=== PATIENT | female | born 1960 | race Caucasian/White ===

== ENCOUNTER 2017-01-14 14:09 | Emergency (ER) | payer MEDICAID ==
[2017-01-14 14:19] VITALS: RESP 16; TEMP 97.8; O2SAT 98
[2017-01-14] MEDS ORDERED: Sodium Chloride 0.9% 1,000 ML IV ONE (14:27)
--- NOTE | 2017-01-14 14:36 | C.PDOC ---
History Of Present Illness 56 y/o female brought in by EMS c/o migraine headache that began yesterday. Patient does not speak [place]ian is from [place] and her son is helping to translate. Son reports she fall today and a couple of months ago and as per son "broken her left shoulder bone. Patient denies weakness, or numbness. No visual changes, photophobia, nausea, or vomiting. Time Seen by Provider: 01/14/17 14:14 Chief Complaint (Nursing): Headache History Per: Patient, Family (SON) History/Exam Limitations: language barrier Onset/Duration Of Symptoms: Days (Yesterday) Current Symptoms Are (Timing): Still Present Severity: Mild Quality: Aching Associated Symptoms: denies: Photophobia, Blurred Vision, Nausea, Vomiting, Extremity Weakness Additional History Per: Patient, Family Past Medical History Reviewed: Historical Data, Nursing Documentation, Vital Signs Vital Signs: Last Vital Signs Temp 97.8 F 01/14/17 14:16 Pulse 84 01/14/17 16:30 Resp 16 01/14/17 16:30 BP 115/78 01/14/17 16:30 Pulse Ox 98 01/14/17 16:30 - Medical History PMH: HTN Family History: States: Unknown Family Hx - Social History Hx Alcohol Use: No Hx Substance Use: No - Immunization History Hx Tetanus Toxoid Vaccination: No Hx Influenza Vaccination: No Hx Pneumococcal Vaccination: No Review Of Systems Except As Marked, All Systems Reviewed And Found Negative. Eyes: Negative for: Vision Change, Other (Photophobia) Gastrointestinal: Negative for: Nausea, Vomiting Neurological: Positive for: Headache. Negative for: Weakness, Numbness Physical Exam - Physical Exam Appears: Non-toxic, No Acute Distress Skin: Warm, Dry Head: Atraumatic, Normacephalic Eye(s): bilateral: Normal Inspection, PERRL, EOMI Cardiovascular: Rhythm Regular, No Murmur Respiratory: Normal Breath Sounds, No Rales, No Rhonchi, No Wheezing Gastrointestinal/Abdominal: Soft, No Tenderness Neurological/Psych: Oriented x3, Normal Motor, Normal Sensation Gait: Steady ED Course And Treatment - Laboratory Results Result Diagrams: 01/14/17 15:00 01/14/17 15:00 Lab Interpretation: Normal ECG: Interpreted By Me ECG Rhythm: Sinus Rhythm ECG Interpretation: No Acute Changes Rate From EC O2 Sat by Pulse Oximetry: 98 (RA) Pulse Ox Interpretation: Normal - CT Scan/US No standard instances Other Rad Studies (CT/US): Read By Radiologist, Radiology Report Reviewed CT/US Interpretation: FINDINGS: HEMORRHAGE: No intracranial hemorrhage. BRAIN : Normal wisdom-white matter differentiation and density are appreciated throughout the cerebrum and cerebellum with the brainstem appearing unremarkable as well. There is no mass effect. There is no suspicious extra- axial fluid collection in the midline brain anatomy appears diffusely unremarkable. VENTRICLES: Unremarkable. No hydrocephalus. CALVARIUM: Unremarkable. PARANASAL SINUSES: Right maxillary multifocal ethmoid sinus disease identified. MASTOID AIR CELLS: Unremarkable as visualized. No inflammatory changes. OTHER FINDINGS: None. IMPRESSION: Unremarkable unenhanced head CT. Incidental multifocal sinusitis incidentally noted as discussed above. Progress Note: Treated with reglan and IVF NSS. On re-evaluation feeling better , neuro intact ambulating with steady gait Reassessment Condition: Improved Medical Decision Making Medical Decision Making: Plans: * CT Head w/o * Blood labs * Reglan * IV fluids * UA Disposition Counseled Patient/Family Regarding: Studies Performed, Diagnosis, Need For Followup, Rx Given - Disposition Referrals: [facility] [Outside] [facility] [Outside] Disposition: HOME/ ROUTINE Disposition Time: 16:30 Condition: STABLE Prescriptions: Acetaminophen/Butalbital/Caf [Fioricet] 1 tab PO TID PRN #12 tab PRN Reason: Headache Instructions: Migraine Headache (ED) Forms: [facility] (Jordanian) - POA Present On Arrival: None - Clinical Impression Clinical Impression: Headache, Migraine - Scribe Statement The provider has reviewed the documentation as recorded by the Lianeibmary bonner All medical record entries made by the Lianeibmary were at my direction and personally dictated by me. I have reviewed the chart and agree that the record accurately reflects my personal performance of the history, physical exam, medical decision making, and the department course for this patient. I have also personally directed, reviewed, and agree with the discharge instructions and disposition.
[2017-01-14] MEDS ORDERED: Sodium Chloride 0.9% 1,000 ML ONE (14:48)
[2017-01-14 15:05] LABS: BASO % 0.4 % (0.0-2.0); EOS # 0.2 K/uL (0.0-0.7); HEMATOCRIT 42.6 % (34.0-47.0); LYMPH # 1.1 K/uL (1.0-4.3); LYMPH % 18.3 % (20.0-40.0); MEAN CELL VOLUME 74.8 fL (81.0-99.0); MEAN CORPUSCULAR HEMOGLOBIN 24.2 pg (27.0-31.0); MEAN CORPUSCULAR HGB CONC 32.4 g/dL (33.0-37.0); MEAN PLATELET VOLUME 8.1 fL (7.2-11.7); MONO # 0.3 K/uL (0.0-0.8); MONO % 5.2 % (0.0-10.0); RED CELL DISTRIBUTION WIDTH 14.7 % (11.5-14.5); WHITE BLOOD COUNT 6.1 K/uL (4.8-10.8)
[2017-01-14 15:12] LABS: CHLORIDE 99 mmol/L (98-107); POTASSIUM 4.1 mmol/L (3.6-5.2); SODIUM 136 mmol/L (132-148)
[2017-01-14 15:14] LABS: ALB/GLOB RATIO 1.2 (1.0-2.1); AST/SGOT 22 U/L (14-36); BILIRUBIN,TOTAL 0.5 mg/dL (0.2-1.3); CARBON DIOXIDE 22 mmol/L (22-30); GFR AFRICAN-AMERICAN > 60
[2017-01-14 15:15] LABS: ALKALINE PHOSPHATASE 76 U/L (38-126); ALT/SGPT 32 U/L (9-52); BLOOD UREA NITROGEN 8 mg/dL (7-17); CALCIUM 9.1 mg/dl (8.6-10.4); GLUCOSE,RANDOM 103 mg/dL (65-105)
--- NOTE | 2017-01-14 15:52 | CT ---
PROCEDURE: CT HEAD WITHOUT CONTRAST. HISTORY: R/O Bleed COMPARISON: None available. TECHNIQUE: Axial computed tomography images were obtained through the head/brain without intravenous contrast. Radiation dose: Total exam DLP = 982.82 mGy-cm. This CT exam was performed using one or more of the following dose reduction techniques: Automated exposure control, adjustment of the mA and/or kV according to patient size, and/or use of iterative reconstruction technique. FINDINGS: HEMORRHAGE: No intracranial hemorrhage. BRAIN: Normal wisdom-white matter differentiation and density are appreciated throughout the cerebrum and cerebellum with the brainstem appearing unremarkable as well. There is no mass effect. There is no suspicious extra-axial fluid collection in the midline brain anatomy appears diffusely unremarkable. VENTRICLES: Unremarkable. No hydrocephalus. CALVARIUM: Unremarkable. PARANASAL SINUSES: Right maxillary multifocal ethmoid sinus disease identified. MASTOID AIR CELLS: Unremarkable as visualized. No inflammatory changes. OTHER FINDINGS: None. IMPRESSION: Unremarkable unenhanced head CT. Incidental multifocal sinusitis incidentally noted as discussed above.
[2017-01-14 16:31] VITALS: BP 115/78; PULSE 84
--- NOTE | 2017-01-16 11:24 | CARD ---
APPROVED REPORT EKG Measurement Heart [id number] <Conclusion> Sinus rhythm with premature atrial complexes Low voltage QRS Inferior infarct, age undetermined Possible Anterolateral infarct, age undetermined Abnormal ECG
== END 2017-01-14 16:30 | disposition home or self-care (01) ==
LOC: C.ER 14:09
DX: G43.909 Migraine, unspecified, not intractable, without status migrainosus (principal)

== ENCOUNTER 2017-01-19 07:07 | Inpatient (IN) | payer MEDICAID, OTHER ==
--- NOTE | 2017-01-19 07:34 | C.PDOC ---
History Of Present Illness Patient is a 56 y/o F presenting after episode of altered mental status. Family reports that they found patient altered in bed at 5am (2.5 hours ago). They report that patient was shaking and was incontinent of urine. They report that when she "woke up" she was confused and was found same way by EMS. Patient is now AAox3. Patient reports that she was previously told she might have a seizure disorder in [place] but was discontinued by HUGO GARCIA who thought that she did not have seizures. Patient is now complaining of dizziness and headache. Denies fever, chest pain, shortness of breath. 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 Time Seen by Provider: 01/19/17 07:08 Chief Complaint (Nursing): Seizure History Per: Patient History/Exam Limitations: no limitations Recent Seizure Activity Began: Unknown Quality Of Seizure: Generalized Associated Symptoms: Incontinence Of Urine Severity: Mild Additional History Per: Patient Past Medical History Reviewed: Historical Data, Nursing Documentation, Vital Signs Vital Signs: Last Vital Signs Temp 97.5 F L 01/19/17 12:47 Pulse 67 01/19/17 12:47 Resp 20 01/19/17 12:47 BP 117/78 01/19/17 12:47 Pulse Ox 96 01/19/17 14:20 - Medical History PMH: HTN, Migraine Family History: States: Unknown Family Hx - Social History Hx Alcohol Use: No Hx Substance Use: No - Immunization History Hx Tetanus Toxoid Vaccination: No Hx Influenza Vaccination: No Hx Pneumococcal Vaccination: No Review Of Systems Constitutional: Negative for: Fever, Chills ENT: Negative for: Ear Pain Cardiovascular: Positive for: Light Headedness. Negative for: Chest Pain, Palpitations, Orthopnea, Edema Respiratory: Negative for: Cough, Shortness of Breath Gastrointestinal: Negative for: Abdominal Pain Genitourinary: Positive for: Incontinence (urine) Skin: Negative for: Rash Neurological: Positive for: Seizures, Headache, Dizziness Psych: Negative for: Anxiety Physical Exam - Physical Exam Appears: Well, Non-toxic, No Acute Distress, Other (Obese female) Skin: Warm, Dry Head: Atraumatic, Normacephalic Eye(s): bilateral: Normal Inspection Oral Mucosa: Moist Neck: Supple Chest: Symmetrical Cardiovascular: Rhythm Regular, No Murmur Respiratory: Normal Breath Sounds, No Rales, No Rhonchi, No Wheezing Gastrointestinal/Abdominal: Soft, No Tenderness Back: Normal Inspection, No CVA Tenderness Extremity: Normal ROM (x4), No Pedal Edema (No lower extremity edema), Capillary Refill (<2secs) Neurological/Psych: Oriented x3, Normal Speech, Normal Cognition, Normal Cranial Nerves Gait: Unable To Assess (reports too dizzy to ambulate) ED Course And Treatment - Laboratory Results Result Diagrams: 01/19/17 07:47 01/19/17 07:47 O2 Sat by Pulse Oximetry: 96 (RA) Pulse Ox Interpretation: Normal - CT Scan/US CT Head w/o Other Rad Studies (CT/US): Interpreted By Me, Read By Radiologist CT/US Interpretation: PROCEDURE: CT HEAD WITHOUT CONTRAST. HISTORY: seizure. COMPARISON: None available. TECHNIQUE: Axial computed tomography images were obtained through the head/brain without intravenous contrast. Radiation dose: Total exam DLP = 998 mGy-cm. This CT exam was performed using one or more of the following dose reduction techniques: Automated exposure control, adjustment of the mA and/or kV according to patient size, and/or use of iterative reconstruction technique. FINDINGS: HEMORRHAGE: No intracranial hemorrhage. BRAIN: No mass effect or edema. No atrophy or chronic microvascular ischemic changes. VENTRICLES: Unremarkable. No hydrocephalus. CALVARIUM: Unremarkable. PARANASAL SINUSES: Dense mucosal opacification of the right maxillary sinus as well as the posterior left ethmoid air cells. Milder mucosal opacification the anterior to mid ethmoid air cells and sphenoid sinus. Dense opacification the right frontal sinus. MASTOID AIR CELLS: Unremarkable as visualized. No inflammatory changes. OTHER FINDINGS: Motion artifact somewhat limits evaluation. IMPRESSION: No acute intracranial abnormality. Extensive sinus mucosal disease as described above. If focal neurologic deficit persists, consider MRI. Medical Decision Making Medical Decision Making: Presentation concerning for seizure. Plans: * CT Head w/o * EKG * Blood labs * CXR * Tylenol * Antivert * UA * IV fluids 10:21AM EKG shows NSR at 65bpm with non-specific st changes. Trop x 1 negative. Labs grossly normal. UA shows leukocytes but patient denies dysuria. Ucx sent. Cxray shows mild pulmonary venous congestion. CT head negative but shows "Extensive sinus mucosal disease." Patient reports persistent dizziness. Spoke to Julia. Will admit to tele with neurology consult for new onset seizures requiring further eval. Disposition - Disposition Disposition: HOSPITALIZED Disposition Time: 10:24 Condition: FAIR - Clinical Impression Clinical Impression: Seizure, Dizziness - Scribe Statement The provider has reviewed the documentation as recorded by the Scribe Meño bonner All medical record entries made by the Lianeibe were at my direction and personally dictated by me. I have reviewed the chart and agree that the record accurately reflects my personal performance of the history, physical exam, medical decision making, and the department course for this patient. I have also personally directed, reviewed, and agree with the discharge instructions and disposition.
[2017-01-19 07:55] LABS: BASO # 0.1 K/uL (0.0-0.2); BASO % 0.7 % (0.0-2.0); EOS # 0.4 K/uL (0.0-0.7); EOS % 4.5 % (0.0-4.0); HEMATOCRIT 41.4 % (34.0-47.0); LYMPH # 1.8 K/uL (1.0-4.3); LYMPH % 22.3 % (20.0-40.0); MEAN CELL VOLUME 74.8 fL (81.0-99.0); MEAN CORPUSCULAR HEMOGLOBIN 23.6 pg (27.0-31.0); MEAN CORPUSCULAR HGB CONC 31.5 g/dL (33.0-37.0); MEAN PLATELET VOLUME 8.2 fL (7.2-11.7); MONO # 0.5 K/uL (0.0-0.8); MONO % 6.4 % (0.0-10.0); RED CELL DISTRIBUTION WIDTH 14.7 % (11.5-14.5)
[2017-01-19 08:00] LABS: CHLORIDE 98 mmol/L (98-107)
[2017-01-19 08:01] LABS: POTASSIUM 3.9 mmol/L (3.6-5.2); SODIUM 134 mmol/L (132-148)
[2017-01-19 08:03] LABS: ALB/GLOB RATIO 1.5 (1.0-2.1); ALKALINE PHOSPHATASE 65 U/L (38-126); AST/SGOT 18 U/L (14-36); BILIRUBIN,TOTAL 0.4 mg/dL (0.2-1.3); CARBON DIOXIDE 24 mmol/L (22-30); GFR AFRICAN-AMERICAN > 60
[2017-01-19 08:04] LABS: ALT/SGPT 30 U/L (9-52); BLOOD UREA NITROGEN 17 mg/dL (7-17); CALCIUM 9.1 mg/dl (8.6-10.4); GLUCOSE,RANDOM 111 mg/dL (65-105); MAGNESIUM 1.8 mg/dL (1.6-2.3); PHOSPHOROUS 3.2 mg/dL (2.5-4.5)
[2017-01-19 09:29] LABS: RBC URINE 2 /hpf (0-3); URINE BACTERIA RARE (<OCC); URINE BILIRUBIN NEGATIVE (NEGATIVE); URINE BLOOD 1+ (NEGATIVE); URINE COLOR Yellow (YELLOW); URINE GLUCOSE (UA) NORMAL (Normal); URINE KETONE NEGATIVE (NEGATIVE); URINE LEUKOCYTE ESTERASE 1+ Leu/uL (Negative); URINE PROTEIN NEGATIVE (NEGATIVE); URINE UROBILINOGEN NORMAL mg/dL (0.2-1.0); WBC URINE 10 /hpf (0-5)
--- NOTE | 2017-01-19 09:57 | CT ---
PROCEDURE: CT HEAD WITHOUT CONTRAST. HISTORY: seizure COMPARISON: None available. TECHNIQUE: Axial computed tomography images were obtained through the head/brain without intravenous contrast. Radiation dose: Total exam DLP = 998 mGy-cm. This CT exam was performed using one or more of the following dose reduction techniques: Automated exposure control, adjustment of the mA and/or kV according to patient size, and/or use of iterative reconstruction technique. FINDINGS: HEMORRHAGE: No intracranial hemorrhage. BRAIN: No mass effect or edema. No atrophy or chronic microvascular ischemic changes. VENTRICLES: Unremarkable. No hydrocephalus. CALVARIUM: Unremarkable. PARANASAL SINUSES: Dense mucosal opacification of the right maxillary sinus as well as the posterior left ethmoid air cells. Milder mucosal opacification the anterior to mid ethmoid air cells and sphenoid sinus. Dense opacification the right frontal sinus. MASTOID AIR CELLS: Unremarkable as visualized. No inflammatory changes. OTHER FINDINGS: Motion artifact somewhat limits evaluation. IMPRESSION: No acute intracranial abnormality. Extensive sinus mucosal disease as described above. If focal neurologic deficit persists, consider MRI.
[2017-01-19] MEDS ORDERED: Apap-Butalbital-Caffeine 325-50-40mg Tab PO PRN (11:21)
--- NOTE | 2017-01-19 11:21 | RAD ---
PROCEDURE: CHEST RADIOGRAPH, 1 VIEW HISTORY: Seizure COMPARISON: None available. FINDINGS: LUNGS: Limited study as the patient is rotated. Venous congestion. Right hilar prominence. Patchy increased markings at the right base. PLEURA: As above. CARDIOVASCULAR: Cardiomegaly. OSSEOUS STRUCTURES: Degenerative changes in the spine and shoulders. Question deformity of the left proximal humerus. VISUALIZED UPPER ABDOMEN: Normal. OTHER FINDINGS: None. IMPRESSION: Limited study as the patient is rotated. Venous congestion. Right hilar prominence. Patchy increased markings at the right lung base. Cardiomegaly. Degenerative changes in the spine and shoulders. Question deformity of the left proximal humerus.
--- NOTE | 2017-01-19 11:25 | RAD ---
HISTORY: seizure COMPARISON: 01/19/2017 TECHNIQUE: Chest PA and lateral FINDINGS: LUNGS: Mild venous congestion. PLEURA: No significant pleural effusion identified. No pneumothorax apparent. CARDIOVASCULAR: Tortuous ectatic aorta. OSSEOUS STRUCTURES: Degenerative changes in the spine. VISUALIZED UPPER ABDOMEN: Normal. OTHER FINDINGS: None. IMPRESSION: Mild venous congestion.
[2017-01-19] MEDS: Pantoprazole 40 mg EC Tab PO SCH (12:50)
[2017-01-19 12:51] VITALS: RESP 20
--- NOTE | 2017-01-19 14:51 | CP.PCM.PN ---
Subjective - Date & Time of Evaluation Date of Evaluation: 01/19/17 Time of Evaluation: 14:45 - Subjective Subjective: Progress note. Attending: Dr. Richey Rapid response called. Pt came in this morning with new onset seizure. Pt was seen and examined at bedside. Not actively seizing, in post ictal state. VSS. Blood sugar 96. Objective - Vital Signs/Intake and Output Vital Signs (last 24 hours): Temp Pulse Resp BP Pulse Ox 97.5 F L 67 20 117/78 96 01/19/17 12:47 01/19/17 12:47 01/19/17 12:47 01/19/17 12:47 01/19/17 14:21 Intake and Output: 01/19/17 01/19/17 06:59 18:59 Output Total 600 Balance -600 - Medications Medications: Current Medications Acetaminophen/Butalbital/Caffeine (Fioricet) 1 tab PO TID PRN PRN Reason: Headache Enoxaparin Sodium (Lovenox) 40 mg SC DAILY AMELIA Levetiracetam 500 mg/ Dextrose 105 mls @ 420 mls/hr IVPB Q12H AMELIA Pantoprazole Sodium (Protonix Ec Tab) 40 mg PO DAILY AMELIA Last Admin: 01/19/17 12:50 Dose: 40 mg - Labs Labs: 01/19/17 07:47 01/19/17 07:47 PT 11.3 SECONDS (9.7-12.2) 01/19/17 07:47 INR 1.0 01/19/17 07:47 APTT 29 SECONDS (21-34) 01/19/17 07:47 - Constitutional Appears: Confused - Head Exam Head Exam: ATRAUMATIC, NORMAL INSPECTION, NORMOCEPHALIC - Eye Exam Eye Exam: EOMI - ENT Exam ENT Exam: Mucous Membranes Moist - Neck Exam Neck Exam: Full ROM - Respiratory Exam Respiratory Exam: Respiratory Distress - Cardiovascular Exam Cardiovascular Exam: +S1, +S2 - GI/Abdominal Exam GI & Abdominal Exam: Soft, Normal Bowel Sounds. absent: Tenderness - Extremities Exam Extremities Exam: Full ROM, Normal Inspection - Neurological Exam Neurological Exam: Altered - Psychiatric Exam Additional comments: unable to assess - Skin Skin Exam: Dry, Intact, Normal Color, Warm Assessment and Plan - Assessment and Plan (Free Text) Assessment: 56 yo female with hx of seizures (?) and migraines presenting to ER with seizures -rapid response called -blood sugar 96 -stat labs ordered -stat chest x ray -2 mg ativan given -post ictal -placed on non rebreather -started on IV keppra -neurology consulted. -continue on telemetry -stat troponin discussed with Dr. Rivas
[2017-01-19 15:02] LABS: ABG ALLEN TEST PO; ARTERIAL BLOOD HGB O2 SAT 96.8 % (95.0-98.0); CARBOXYHEMOGLOBIN 1.8 % (0.5-1.5); DRAW SITE RRA; HHB 0.1 % (0.0-5.0); METHEMOGLOBIN 1.2 % (0.0-3.0)
[2017-01-19 15:20] LABS: BASO # 0.1 K/uL (0.0-0.2); BASO % 0.8 % (0.0-2.0); EOS # 0.3 K/uL (0.0-0.7); EOS % 3.4 % (0.0-4.0); HEMATOCRIT 40.2 % (34.0-47.0); LYMPH # 2.6 K/uL (1.0-4.3); LYMPH % 32.2 % (20.0-40.0); MEAN CORPUSCULAR HEMOGLOBIN 24.3 pg (27.0-31.0); MEAN PLATELET VOLUME 8.1 fL (7.2-11.7); MONO # 0.5 K/uL (0.0-0.8); MONO % 6.1 % (0.0-10.0); RED CELL DISTRIBUTION WIDTH 15.1 % (11.5-14.5)
--- NOTE | 2017-01-19 15:23 | RAD ---
Chest x-ray single frontal view History: Shortness of breath. Comparison: 01/19/2017 Findings: Mild venous congestion. Patchy opacification in the left natalee thorax may be related to patient positioning. Mild cardiomegaly which may be exaggerated by patient positioning and technique. Degenerative changes in the spine. Impression: Mild venous congestion. Patchy opacification in the left natalee thorax may be related to patient positioning. Mild cardiomegaly which may be exaggerated by patient positioning and technique.
[2017-01-19 15:29] LABS: CHLORIDE 101 mmol/L (98-107); POTASSIUM 3.7 mmol/L (3.6-5.2); SODIUM 135 mmol/L (132-148)
[2017-01-19 15:31] LABS: ALKALINE PHOSPHATASE 63 U/L (38-126); ALT/SGPT 27 U/L (9-52); AST/SGOT 24 U/L (14-36); BILIRUBIN,TOTAL 0.4 mg/dL (0.2-1.3); BLOOD UREA NITROGEN 14 mg/dL (7-17); CARBON DIOXIDE 18 mmol/L (22-30); GFR AFRICAN-AMERICAN > 60; TOTAL PROTEIN 7.9 g/dL (6.3-8.3)
[2017-01-19 15:32] LABS: CALCIUM 9.1 mg/dl (8.6-10.4); GLUCOSE,RANDOM 95 mg/dL (65-105); MAGNESIUM 1.7 mg/dL (1.6-2.3); PHOSPHOROUS 3.7 mg/dL (2.5-4.5)
--- NOTE | 2017-01-19 22:03 | CP.PCM.HP ---
Past Patient History - Past Social History Smoking Status: Never Smoked - CARDIAC Hx Hypertension: Yes - NEUROLOGICAL Hx Migraine: Yes - MUSCULOSKELETAL/RHEUMATOLOGICAL Hx Falls: No - PSYCHIATRIC Hx Substance Use: No - ANESTHESIA Hx Anesthesia: No Meds Allergies/Adverse Reactions: Allergies Allergy/AdvReac Type Severity Reaction Status Date / Time No Known Allergies Allergy Verified 01/19/17 07:12 Results - Vital Signs Recent Vital Signs: Last Vital Signs Temp 98 F 01/19/17 15:39 Pulse 86 01/19/17 15:39 Resp 20 01/19/17 15:39 BP 135/86 01/19/17 15:39 Pulse Ox 99 01/19/17 15:39 - Labs Result Diagrams: 01/19/17 15:17 01/19/17 15:17 Labs: Laboratory Results - last 24 hr 01/19/17 01/19/17 01/19/17 07:11 07:47 07:47 WBC 8.0 RBC 5.54 H Hgb 13.1 Hct 41.4 MCV 74.8 L MCH 23.6 L MCHC 31.5 L RDW 14.7 H Plt Count 393 MPV 8.2 Neut % (Auto) 66.1 Lymph % (Auto) 22.3 [place] % (Auto) 6.4 Eos % (Auto) 4.5 H Baso % (Auto) 0.7 Neut # 5.3 Lymph # 1.8 [place] # 0.5 Eos # 0.4 Baso # 0.1 PT 11.3 INR 1.0 APTT 29 Puncture Site pCO2 pO2 HCO3 ABG pH ABG Total CO2 ABG O2 Saturation ABG Base Excess ABG Hemoglobin ABG Carboxyhemoglobin POC ABG HHb (Measured) ABG Methemoglobin Hiren Test A-a O2 Difference Respiratory Index Hgb O2 Saturation Liter Flow FiO2 Sodium Potassium Chloride Carbon Dioxide Anion Gap BUN Creatinine Est GFR ( Amer) Est GFR (Non-Af Amer) POC Glucose (mg/dL) 131 H Random Glucose Lactic Acid Calcium Phosphorus Magnesium Total Bilirubin AST ALT Alkaline Phosphatase Total Creatine Kinase CK-MB (Mass) Troponin I Total Protein Albumin Globulin Albumin/Globulin Ratio Urine Color Urine Clarity Urine pH Ur Specific [place] Urine Protein Urine Glucose (UA) Urine Ketones Urine Blood Urine Nitrate Urine Bilirubin Urine Urobilinogen Ur Leukocyte Esterase Urine WBC (Auto) Urine RBC (Auto) Ur Squamous Epith Cells Urine Bacteria 01/19/17 01/19/1701/19/17 07:47 08:02 09:16 WBC RBC Hgb Hct MCV MCH MCHC RDW Plt Count MPV Neut % (Auto) Lymph % (Auto) [place] % (Auto) Eos % (Auto) Baso % (Auto) Neut # Lymph # [place] # Eos # Baso # PT INR APTT Puncture Site pCO2 pO2 HCO3 ABG pH ABG Total CO2 ABG O2 Saturation ABG Base Excess ABG Hemoglobin ABG Carboxyhemoglobin POC ABG HHb (Measured) ABG Methemoglobin Hiren Test A-a O2 Difference Respiratory Index Hgb O2 Saturation Liter Flow FiO2 Sodium 134 Potassium 3.9 Chloride 98 Carbon Dioxide 24 Anion Gap 17 BUN 17 Creatinine 0.7 Est GFR ( Amer) > 60 Est GFR (Non-Af Amer) > 60 POC Glucose (mg/dL) 127 H Random Glucose 111 H Lactic Acid Calcium 9.1 Phosphorus 3.2 Magnesium 1.8 Total Bilirubin 0.4 AST 18 ALT 30 Alkaline Phosphatase 65 Total Creatine Kinase 60 CK-MB (Mass) 0.81 Troponin I < 0.0120 Total Protein 7.0 Albumin 4.2 Globulin 2.8 Albumin/Globulin Ratio 1.5 Urine Color Yellow Urine Clarity Clear Urine pH 6.0 Ur Specific [place] 1.014 Urine Protein Negative Urine Glucose (UA) Normal Urine Ketones Negative Urine Blood 1+ H Urine Nitrate Negative Urine Bilirubin Negative Urine Urobilinogen Normal Ur Leukocyte Esterase 1+ H Urine WBC (Auto) 10 H Urine RBC (Auto) 2 Ur Squamous Epith Cells 3 Urine Bacteria Rare 01/19/17 01/19/17 01/19/17 14:38 14:50 15:17 WBC 8.0 RBC 5.29 H Hgb 12.9 Hct 40.2 MCV 76.0 L MCH 24.3 L MCHC 32.0 L RDW 15.1 H Plt Count 371 MPV 8.1 Neut % (Auto) 57.5 Lymph % (Auto) 32.2 [place] % (Auto) 6.1 Eos % (Auto) 3.4 Baso % (Auto) 0.8 Neut # 4.6 Lymph # 2.6 [place] # 0.5 Eos # 0.3 Baso # 0.1 PT INR APTT Puncture Site Rra pCO2 40 pO2 282 H HCO3 16.1 L ABG pH 7.21 L ABG Total CO2 17.2 L ABG O2 Saturation 99.9 H ABG Base Excess -11.3 L ABG Hemoglobin 12.1 ABG Carboxyhemoglobin 1.8 H POC ABG HHb (Measured) 0.1 ABG Methemoglobin 1.2 Hiren Test Po A-a O2 Difference 381.0 Respiratory Index 1.4 Hgb O2 Saturation 96.8 Liter Flow 15.0 FiO2 100.0 Sodium Potassium Chloride Carbon Dioxide Anion Gap BUN Creatinine Est GFR ( Amer) Est GFR (Non-Af Amer) POC Glucose (mg/dL) 96 Random Glucose Lactic Acid Calcium Phosphorus Magnesium Total Bilirubin AST ALT Alkaline Phosphatase Total Creatine Kinase CK-MB (Mass) Troponin I Total Protein Albumin Globulin Albumin/Globulin Ratio Urine Color Urine Clarity Urine pH Ur Specific [place] Urine Protein Urine Glucose (UA) Urine Ketones Urine Blood Urine Nitrate Urine Bilirubin Urine Urobilinogen Ur Leukocyte Esterase Urine WBC (Auto) Urine RBC (Auto) Ur Squamous Epith Cells Urine Bacteria 01/19/17 01/19/17 15:17 17:04 WBC RBC Hgb Hct MCV MCH MCHC RDW Plt Count MPV Neut % (Auto) Lymph % (Auto) [place] % (Auto) Eos % (Auto) Baso % (Auto) Neut # Lymph # [place] # Eos # Baso # PT INR APTT Puncture Site pCO2 pO2 HCO3 ABG pH ABG Total CO2 ABG O2 Saturation ABG Base Excess ABG Hemoglobin ABG Carboxyhemoglobin POC ABG HHb (Measured) ABG Methemoglobin Hiren Test A-a O2 Difference Respiratory Index Hgb O2 Saturation Liter Flow FiO2 Sodium 135 Potassium 3.7 Chloride 101 Carbon Dioxide 18 L Anion Gap 20 BUN 14 Creatinine 0.7 Est GFR ( Amer) > 60 Est GFR (Non-Af Amer) > 60 POC Glucose (mg/dL) Random Glucose 95 Lactic Acid 2.2 H Calcium 9.1 Phosphorus 3.7 Magnesium 1.7 Total Bilirubin 0.4 AST 24 ALT 27 Alkaline Phosphatase 63 Total Creatine Kinase CK-MB (Mass) Troponin I 0.0130 Total Protein 7.9 Albumin 4.0 Globulin 3.9 Albumin/Globulin Ratio 1.0 Urine Color Urine Clarity Urine pH Ur Specific [place] Urine Protein Urine Glucose (UA) Urine Ketones Urine Blood Urine Nitrate Urine Bilirubin Urine Urobilinogen Ur Leukocyte Esterase Urine WBC (Auto) Urine RBC (Auto) Ur Squamous Epith Cells Urine Bacteria
[2017-01-20] MEDS: Levothyroxine 50 MCG TAB PO SCH (06:06)
--- NOTE | 2017-01-20 07:24 | CON ---
NEUROLOGY CONSULTATION REPORT DATE: REASON FOR CONSULTATION: Seizure. HISTORY OF PRESENTING ILLNESS: The patient is a 56-year-old female who has been asked for evaluation of seizure. The patient apparently was found confused in bed this morning. The patient was apparently shaking and was incontinent of urine. When woke up, she was confused. The patient apparently has history of seizures disorder. She was on antiepileptic medication, however, it was discontinued recently. At present, the patient denies having any headache or dizziness. Denies any new complaints. REVIEW OF SYSTEMS: Denies any headache, dizziness, chest pain, shortness of breath, abdominal pain, constipation, diarrhea, cough, or sputum production. PAST MEDICAL HISTORY: Includes hypothyroidism, and seizure disorder. MEDICATIONS AT HOME: Include levothyroxine, valproic acid, which was stopped, and Fioricet p.r.n. ALLERGIES: NO KNOWN DRUG ALLERGIES. SOCIAL HISTORY: Denies smoking, use of alcohol, or illicit drugs FAMILY HISTORY: Reviewed and noncontributory to the case. PHYSICAL EXAMINATION: GENERAL: The patient is a middle aged female, lying on the bed, in no acute distress. VITAL SIGNS: Her blood pressure is 135/86, heart rate is 86 per minute, breathing at the rate of 16 per minute, and temperature is 98 degrees Fahrenheit. HEENT: Normocephalic and atraumatic. NECK: Supple. There are no carotid bruits. LUNGS: Clear. CARDIOVASCULAR SYSTEM: S1 and S2 audible. No murmurs. ABDOMEN: Soft and nontender. Bowel sound are present. NEUROLOGIC: Mental status: The patient is awake, alert and oriented to place and year. She follows simple commands. Cranial nerve examination: Pupils 3 mm bilaterally, reactive to light. Visual fairbanks are full. Extraocular movements are intact. There is no facial asymmetry. Motor examination: Tone is normal. Power is 4/5 to 5/5 allover. The patient's left upper movements are restricted secondary to history of left upper extremity fracture. Gait is deferred at the moment. LABORATORY DATA: Labs reviewed, shows WBC of 8.0, hemoglobin of 12.9, hematocrit of 40.2 and platelets of 371. INR is 1.0. Sodium is 135, potassium is 3.7, chloride is 101, carbon dioxide is 18, BUN of 14, creatinine of 0.7 and glucose of 95. She had CT scan of the head done, which shows no acute intracranial pathology. IMPRESSION: Breakthrough seizure with history of seizure disorder. RECOMMENDATIONS: 1. The patient will have an electroencephalogram. 2. I agree with the patient being started on Keppra. Currently, the patient is on IV Keppra. We will switch to p.o Keppra 500 mg twice a day. 3. The patient to have seizure precautions. 4. Please continue treatment and supportive care. Thank you for the opportunity to participate in the care of this patient. Jadon Gerardo MD
--- NOTE | 2017-01-20 09:46 | CP.PCM.PN ---
Subjective - Date & Time of Evaluation Date of Evaluation: 01/20/17 Time of Evaluation: 09:44 - Subjective Subjective: Code Star Note: Called at 9:20. Patient found on the ground outside of the bathroom in her room. project engineering manager called and patient helped to her bed. Patient having right shoulder and humerus pain. Patient denies any new pain elsewhere. Patient denies head trauma. Objective - Vital Signs/Intake and Output Vital Signs (last 24 hours): Temp Pulse Resp BP Pulse Ox 97.8 F 61 20 132/79 94 L 01/20/17 08:00 01/20/17 08:00 01/20/17 08:00 01/20/17 08:00 01/20/17 08:00 - Medications Medications: Current Medications Acetaminophen/Butalbital/Caffeine (Fioricet) 1 tab PO TID PRN PRN Reason: Headache Enoxaparin Sodium (Lovenox) [address] [facility] Levetiracetam (Keppra) [address] [facility] Last Admin: 01/19/17 22:19 Dose: 500 mg Levothyroxine Sodium (Synthroid) 50 mcg PO DAILY@0630 [facility] Last Admin: 01/20/17 06:06 Dose: 50 mcg Pantoprazole Sodium (Protonix Ec Tab) [address] [facility] Last Admin: 01/19/17 12:50 Dose: 40 mg - Labs Labs: 01/19/17 15:17 01/19/17 15:17 PT 11.3 SECONDS (9.7-12.2) 01/19/17 07:47 INR 1.0 01/19/17 07:47 APTT 29 SECONDS (21-34) 01/19/17 07:47 Assessment and Plan - Assessment and Plan (Free Text) Plan: Xray of left shoulder and humerus
[2017-01-20] MEDS: Enoxaparin 40 mg Syringe SC SCH (11:51)
[2017-01-20] MEDS: Pantoprazole 40 mg EC Tab PO SCH (11:53)
--- NOTE | 2017-01-20 13:23 | RAD ---
PROCEDURE: Radiographs of the Left Shoulder HISTORY: fall, pain COMPARISON: No prior. FINDINGS: BONES: Fracture dislocation left shoulder. Comminuted fracture through the proximal left humerus at the junction of the humeral head and neck. Anterior inferior dislocation. JOINTS: Normal. Glenohumeral and acromioclavicular joints preserved. No osteoarthritis. SOFT TISSUES: Soft tissue swelling attests to the acuity of the dislocation- fracture. OTHER FINDINGS: None. IMPRESSION: Acute Fracture dislocation proximal left humerus.
--- NOTE | 2017-01-20 14:07 | RAD ---
PROCEDURE: Radiographs of the left humerus. HISTORY: fall, pain COMPARISON: None. FINDINGS: BONES: Comminuted fracture left humeral head . Fracture fragments displaced impacted upon each other. The comminuted fracture fragments project along the inferior aspect of the glenoid fossa ; a concomitant mild inferior subluxation and/or dislocation also needs to be considered. SOFT TISSUES: Large body habitus OTHER FINDINGS: None. IMPRESSION: Comminuted fracture left humeral head with mild displacement/ impaction upon fracture fragments into/ upon each of. Based on these projections, a concomitant mild inferior subluxation and/or dislocation also needs to be considered. For fracture fragment mapping purposes and to better assess the umeral head-glenoid relationship, consider CT of the left shoulder Comminuted fracture fragments were discussed with the nurse Claudette who is taking care the patient on 01/20/2017 at approximately 1:50 p.m.
--- NOTE | 2017-01-20 18:06 | CT ---
PROCEDURE: CT left shoulder HISTORY: COMMUNIATED FX L SHOULDER COMPARISON: Not available TECHNIQUE: 2.5 mm contiguous axial sections were acquired through the left shoulder. Sagittal and coronal images were reformatted from the axial scan. FINDINGS: The examination is technically limited due to patient body habitus an off center positioning. There is a comminuted fracture of the humeral head with displacement. In comparison to prior plain radiographic examination of the same date, there has been reduction of the anterior dislocation although there is persistent inferior subluxation and impaction upon the inferior glenoid. There is no evidence of glenoid fracture. The acromioclavicular articulation is intact. IMPRESSION: Status post close reduction of anterior dislocation with comminuted displaced humeral head fracture. There is inferior subluxation of the humeral head with impaction on the inferior glenoid but without evidence of glenoid fracture.
--- NOTE | 2017-01-20 18:38 | CP.PCM.PN ---
Subjective - Date & Time of Evaluation Date of Evaluation: 01/20/17 Time of Evaluation: 09:20 - Subjective Subjective: clinically same Objective - Vital Signs/Intake and Output Vital Signs (last 24 hours): Temp Pulse Resp BP Pulse Ox 97.8 F 69 20 140/91 H 97 01/20/17 17:00 01/20/17 17:00 01/20/17 17:00 01/20/17 17:00 01/20/17 17:00 - Medications Medications: Current Medications Acetaminophen/Butalbital/Caffeine (Fioricet) 1 tab PO TID PRN PRN Reason: Headache Enoxaparin Sodium (Lovenox) 40 mg SC DAILY [facility] Last Admin: 01/20/17 11:51 Dose: 40 mg Levetiracetam (Keppra) 500 mg PO BID [facility] Last Admin: 01/20/17 17:33 Dose: 500 mg Levothyroxine Sodium (Synthroid) 50 mcg PO DAILY@0630 [facility] Last Admin: 01/20/17 06:06 Dose: 50 mcg Morphine Sulfate (Morphine) 2 mg IVP Q4 PRN PRN Reason: Pain, severe (8-10) Last Admin: 01/20/17 17:33 Dose: 2 mg Pantoprazole Sodium (Protonix Ec Tab) 40 mg PO DAILY [facility] Last Admin: 01/20/17 11:53 Dose: 40 mg - Labs Labs: 01/19/17 15:17 01/19/17 15:17 PT 11.3 SECONDS (9.7-12.2) 01/19/17 07:47 INR 1.0 01/19/17 07:47 APTT 29 SECONDS (21-34) 01/19/17 07:47 - Constitutional Appears: Well - Head Exam Head Exam: ATRAUMATIC, NORMAL INSPECTION, NORMOCEPHALIC - Eye Exam Eye Exam: EOMI, Normal appearance, PERRL Pupil Exam: NORMAL ACCOMODATION, PERRL - ENT Exam ENT Exam: Mucous Membranes Moist, Normal Exam - Neck Exam Neck Exam: Full ROM, Normal Inspection. absent: Lymphadenopathy - Respiratory Exam Respiratory Exam: Decreased Breath Sounds - Cardiovascular Exam Cardiovascular Exam: REGULAR RHYTHM, +S1, +S2 - GI/Abdominal Exam GI & Abdominal Exam: Soft, Diminished Bowel Sounds - Rectal Exam Rectal Exam: Deferred
[2017-01-21] MEDS: Levothyroxine 50 MCG TAB PO SCH (05:43)
[2017-01-21 08:31] VITALS: O2SAT 95
[2017-01-21] MEDS: Enoxaparin 40 mg Syringe SC SCH (10:20)
[2017-01-21] MEDS: Pantoprazole 40 mg EC Tab PO SCH (10:20)
[2017-01-21 11:28] LABS: BASO % 0.6 % (0.0-2.0); EOS # 0.4 K/uL (0.0-0.7); EOS % 7.4 % (0.0-4.0); HEMATOCRIT 38.2 % (34.0-47.0); LYMPH # 2.2 K/uL (1.0-4.3); LYMPH % 39.3 % (20.0-40.0); MEAN CELL VOLUME 75.4 fL (81.0-99.0); MEAN CORPUSCULAR HGB CONC 31.8 g/dL (33.0-37.0); MEAN PLATELET VOLUME 8.2 fL (7.2-11.7); MONO # 0.3 K/uL (0.0-0.8); RED CELL DISTRIBUTION WIDTH 15.1 % (11.5-14.5); WHITE BLOOD COUNT 5.6 K/uL (4.8-10.8)
[2017-01-21 12:14] LABS: CHLORIDE 99 mmol/L (98-107); POTASSIUM 3.4 mmol/L (3.6-5.2); SODIUM 136 mmol/L (132-148)
[2017-01-21 12:16] LABS: GFR AFRICAN-AMERICAN > 60
[2017-01-21 12:17] LABS: ALKALINE PHOSPHATASE 65 U/L (38-126); ALT/SGPT 39 U/L (9-52); AST/SGOT 35 U/L (14-36); BILIRUBIN,TOTAL 0.4 mg/dL (0.2-1.3); BLOOD UREA NITROGEN 12 mg/dL (7-17); CALCIUM 9.2 mg/dl (8.6-10.4); CARBON DIOXIDE 27 mmol/L (22-30); GLUCOSE,RANDOM 86 mg/dL (65-105); TOTAL PROTEIN 7.4 g/dL (6.3-8.3)
--- NOTE | 2017-01-21 12:48 | CP.PCM.CON ---
History of Present Illness - History of Present Illness History of Present Illness: Orthopedic consultation requested Dr. jen Beard at bedside, gives history 56f complains of left shoulder pain after fall in house. Son clarifies that patient fell 2 months ago and sustained left shoulder fracture at that time. He says she was seen and treated conservatively by a orthopedic doctor in [place]. Pain has been controlled, she was no longer using sling and had started physical therapy. To clarify, she did not have actual surgery on her left shoulder. Son has initial xrays on his phone, which I reviewed. The position of the fracture, head impaction, and inferior subluxation relative to the glenoid when compared to the xrays post fall on 01/20 appear equivocal. Also noted on 01/20 xrays that there is clear callus formation on the lateral aspect of the humerus. L shoulder is visible on CXR on admission 01/19 7:30 and clearly demonstrates left proximal humerus fracture was present prior to fall. Currently, patient is complaining of some increased pain in her left shoulder since fall. Denies numbness/tingling/pain in other extremities Past Patient History - Past Medical History & Family History Past Medical History?: Yes Past Family History: Reviewed and not pertinent - Past Social History Smoking Status: Never Smoked - CARDIAC Hx Hypertension: Yes - NEUROLOGICAL Hx Migraine: Yes - MUSCULOSKELETAL/RHEUMATOLOGICAL Hx Falls: No - PSYCHIATRIC Hx Substance Use: No - ANESTHESIA Hx Anesthesia: No Meds Allergies/Adverse Reactions: Allergies Allergy/AdvReac Type Severity Reaction Status Date / Time No Known Allergies Allergy Verified 01/19/17 07:12 - Medications Medications: Current Medications Acetaminophen/Butalbital/Caffeine (Fioricet) 1 tab PO TID PRN PRN Reason: Headache Diphenhydramine HCl (Benadryl) 25 mg PO Q8 PRN PRN Reason: Itching / Pruritus Last Admin: 01/20/17 22:07 Dose: 25 mg Enoxaparin Sodium (Lovenox) 40 mg SC DAILY [facility] Last Admin: 01/21/17 10:20 Dose: 40 mg Levetiracetam (Keppra) 500 mg PO BID [facility] Last Admin: 01/21/17 10:20 Dose: 500 mg Levothyroxine Sodium (Synthroid) 50 mcg PO DAILY@0630 [facility] Last Admin: 01/21/17 05:43 Dose: 50 mcg Morphine Sulfate (Morphine) 2 mg IVP Q4 PRN PRN Reason: Pain, severe (8-10) Last Admin: 01/21/17 10:20 Dose: 2 mg Pantoprazole Sodium (Protonix Ec Tab) 40 mg PO DAILY [facility] Last Admin: 01/21/17 10:20 Dose: 40 mg Potassium Chloride (K-Dur 20 Meq Er Tab) 40 meq PO ONCE ONE Stop: 01/21/17 13:01 Physical Exam - Constitutional Appears: Well, In Acute Distress - Head Exam Head Exam: ATRAUMATIC, NORMAL INSPECTION - ENT Exam ENT Exam: Mucous Membranes Moist - Respiratory Exam Respiratory Exam: NORMAL BREATHING PATTERN - Expanded Upper Extremities Exam Left Shoulder exam: tenderness (difficult to assess if any swelling due to body habitus) Neuro motor exam: finger 2-5 abduction intact, thumb abduction, thumb IP flexion intact, thumb opposition intact, wrist extension intact Neurosensory exam: median nerve intact, radial nerve intact, ulnar nerve intact Vascular exam: radial pulse - Neurological Exam Neurological exam: Alert - Psychiatric Exam Psychiatric exam: Normal Affect, Normal Mood - Skin Skin Exam: Dry, Intact, Warm Results - Vital Signs Recent Vital Signs: Last Vital Signs Temp 97.2 F L 01/21/17 08:26 Pulse 65 01/21/17 12:11 Resp 20 01/21/17 08:26 BP 112/74 01/21/17 10:20 Pulse Ox 95 01/21/17 12:11 - Labs Result Diagrams: 01/21/17 11:19 01/21/17 11:19 Labs: Laboratory Results - last 24 hr 01/21/17 01/21/17 11:19 11:19 WBC 5.6 RBC 5.07 Hgb 12.2 Hct 38.2 MCV 75.4 L MCH 24.0 L MCHC 31.8 L RDW 15.1 H Plt Count 354 MPV 8.2 Neut % (Auto) 47.7 L Lymph % (Auto) 39.3 Bath % (Auto) 5.0 Eos % (Auto) 7.4 H Baso % (Auto) 0.6 Neut # 2.7 Lymph # 2.2 Bath # 0.3 Eos # 0.4 Baso # 0.0 Sodium 136 Potassium 3.4 L Chloride 99 Carbon Dioxide 27 Anion Gap 13 BUN 12 Creatinine 0.7 Est GFR ( Amer) > 60 Est GFR (Non-Af Amer) > 60 Random Glucose 86 Calcium 9.2 Total Bilirubin 0.4 AST 35 ALT 39 Alkaline Phosphatase 65 Total Protein 7.4 Albumin 3.7 Globulin 3.6 Albumin/Globulin Ratio 1.0 - Impressions Impression: atient Name / ID : STERLING SIEGEL / [id number] Exam Date : 01/20/2017 16:17:07 ( Approved ) Study Comment : Sex / Age : F / 56Y Creator : Allan Jameson MD Dictator : Allan Jameson MD Production Team Member : Project Financial Analyst : Allan Jameson MD Approver2 : Report Date : 01/20/2017 18:05:11 My Comment : PROCEDURE: CT left shoulder HISTORY: COMMUNIATED FX L SHOULDER COMPARISON: Not available TECHNIQUE: 2.5 mm contiguous axial sections were acquired through the left shoulder. Sagittal and coronal images were reformatted from the axial scan. FINDINGS: The examination is technically limited due to patient body habitus an off center positioning. There is a comminuted fracture of the humeral head with displacement. In comparison to prior plain radiographic examination of the same date, there has been reduction of the anterior dislocation although there is persistent inferior subluxation and impaction upon the inferior glenoid. There is no evidence of glenoid fracture. The acromioclavicular articulation is intact. IMPRESSION: Status post close reduction of anterior dislocation with comminuted displaced humeral head fracture. There is inferior subluxation of the humeral head with impaction on the inferior glenoid but without evidence of glenoid fracture. Patient Name / ID : STERLING SIEGEL / [id number] Exam Date : 01/19/2017 07:36:29 ( Approved ) Study Comment : Sex / Age : F / 56Y Creator : Miguel Angel Pineda MD Dictator : Miguel Angel Pineda MD Production Team Member : Project Financial Analyst : Miguel Angel Pineda MD Approver2 : Report Date : 01/19/2017 11:20:11 My Comment : PROCEDURE: CHEST RADIOGRAPH, 1 VIEW HISTORY: Seizure COMPARISON: None available. FINDINGS: LUNGS: Limited study as the patient is rotated. Venous congestion. Right hilar prominence. Patchy increased markings at the right base. PLEURA: As above. CARDIOVASCULAR: Cardiomegaly. OSSEOUS STRUCTURES: Degenerative changes in the spine and shoulders. Question deformity of the left proximal humerus. VISUALIZED UPPER ABDOMEN: Normal. OTHER FINDINGS: None. IMPRESSION: Limited study as the patient is rotated. Venous congestion. Right hilar prominence. Patchy increased markings at the right lung base. Cardiomegaly. Degenerative changes in the spine and shoulders. Question deformity of the left proximal humerus. Assessment & Plan (1) Closed fracture of left proximal humerus Assessment and Plan: Based on history and imaging, this fracture is at least [address] and xray demonstrate callus, and compared to CXR on admission Advised patient that fracture could be treated with surgical or non surgical mgmt, and stated that if she has been relatively pain free and if she finds her ROM to be acceptable at this point, then it is reasonable to continue with conservative treatment, and the patient can follow up with the prior ortho in [place]. Patient and family agree to continue conservative treatment. Sling prn and then continue PT, advised patient and family that prolonged immobilization can lead to stiffness. [place] Thursday. d/w Dr. Darrell Richey, at bedside above discussed with Dr. Nice in detail, agrees with abvoe Status: Acute Review of Systems - Review of Systems Constitutional: Negative for: Fever, HPI, A, Chills, Sweats, DS, Weakness, FA, Malaise, Other, FF, LANCE, IA, L, NS, SN, SHREDDER/GRANULATOR OPERATOR, WG, WL, UN Respiratory: Negative for: Cough, Dry, Shortness of Breath, Hemoptysis, SOB with Exertion, Pleuritic Pain, Sputum, Wheezing Cardiovascular: Negative for: Chest Pain, Palpitations, Orthopnea, Paroxysmal Noc. Dyspnea, Edema, Light Headedness, Other Gastrointestinal: Negative for: Nausea, Vomiting Musculoskeletal: Positive for: Shoulder Pain Neurological: Positive for: Weakness, Incoordination, Confusion, Seizures. Negative for: Numbness, Change in Speech, Other - Medications/Allergies Allergies/Adverse Reactions: Allergies Allergy/AdvReac Type Severity Reaction Status Date / Time No Known Allergies Allergy Verified 01/19/17 07:12 Medications: Current Medications Acetaminophen/Butalbital/Caffeine (Fioricet) 1 tab PO TID PRN PRN Reason: Headache Diphenhydramine HCl (Benadryl) 25 mg PO Q8 PRN PRN Reason: Itching / Pruritus Last Admin: 01/20/17 22:07 Dose: 25 mg Enoxaparin Sodium (Lovenox) 40 mg SC DAILY [facility] Last Admin: 01/21/17 10:20 Dose: 40 mg Levetiracetam (Keppra) 500 mg PO BID [facility] Last Admin: 01/21/17 10:20 Dose: 500 mg Levothyroxine Sodium (Synthroid) 50 mcg PO DAILY@0630 [facility] Last Admin: 01/21/17 05:43 Dose: 50 mcg Morphine Sulfate (Morphine) 2 mg IVP Q4 PRN PRN Reason: Pain, severe (8-10) Last Admin: 01/21/17 10:20 Dose: 2 mg Pantoprazole Sodium (Protonix Ec Tab) 40 mg PO DAILY [facility] Last Admin: 01/21/17 10:20 Dose: 40 mg
[2017-01-21] MEDS ORDERED: Potassium Chloride 20 mEq ER Tab PO ONE (13:00)
--- NOTE | 2017-01-21 13:34 | EEG ---
DATE: 01/20/2017 INTRODUCTION: This is a digitally recorded EEG monitoring using standard EEG montages. BACKGROUND RHYTHM: The EEG shows a background activity of 8 to 9 Hertz alpha activity in parieto-occipital region. The EEG activity is bilaterally symmetrical and synchronous. Drowsiness was noted by slowing of the background activity. ABNORMAL POTENTIALS: No spike, sharp waves or focal slowing was seen. PHOTIC STIMULATION AND HYPERVENTILATION: Photic stimulation did not reveal any abnormality. Hyperventilation was not performed. IMPRESSION: Normal electroencephalogram. No epileptiform activity seen in this electroencephalogram recording. Jadon Gerardo MD
[2017-01-21 15:44] VITALS: BP 107/67; PULSE 66; TEMP 98.1
--- NOTE | 2017-01-21 17:45 | CP.PCM.PN ---
Subjective - Date & Time of Evaluation Date of Evaluation: 01/21/17 Time of Evaluation: 17:30 - Subjective Subjective: Patient seen today , denies any chest pain, sob, dizziness, head ache ,c/o mild pain to the Left arm Objective - Vital Signs/Intake and Output Vital Signs (last 24 hours): Temp Pulse Resp BP Pulse Ox 98.1 F 66 20 107/67 95 01/21/17 15:40 01/21/17 15:40 01/21/17 15:40 01/21/17 15:40 01/21/17 15:40 Intake and Output: 01/21/17 01/21/17 06:59 18:59 Intake Total 400 Balance 400 - Medications Medications: Current Medications Acetaminophen/Butalbital/Caffeine (Fioricet) 1 tab PO TID PRN PRN Reason: Headache Diphenhydramine HCl (Benadryl) 25 mg PO Q8 PRN PRN Reason: Itching / Pruritus Last Admin: 01/20/17 22:07 Dose: 25 mg Enoxaparin Sodium (Lovenox) 40 mg SC DAILY [facility] Last Admin: 01/21/17 10:20 Dose: 40 mg Levetiracetam (Keppra) 500 mg PO BID [facility] Last Admin: 01/21/17 10:20 Dose: 500 mg Levothyroxine Sodium (Synthroid) 50 mcg PO DAILY@0630 [facility] Last Admin: 01/21/17 05:43 Dose: 50 mcg Morphine Sulfate (Morphine) 2 mg IVP Q4 PRN PRN Reason: Pain, severe (8-10) Last Admin: 01/21/17 10:20 Dose: 2 mg Pantoprazole Sodium (Protonix Ec Tab) 40 mg PO DAILY [facility] Last Admin: 01/21/17 10:20 Dose: 40 mg - Labs Labs: 01/21/17 11:19 01/21/17 11:19 PT 11.3 SECONDS (9.7-12.2) 01/19/17 07:47 INR 1.0 01/19/17 07:47 APTT 29 SECONDS (21-34) 01/19/17 07:47 Assessment and Plan - Assessment and Plan (Free Text) Assessment: A/P 56 yr old female admitted for seizure seen by ortho today and Advised patient that fracture could be treated with surgical or non surgical mgmt, and stated that if she has been relatively pain free and if she finds her ROM to be acceptable at this point, then it is reasonable to continue with conservative treatment, and the patient can follow up with the prior ortho in [place]. Patient and family agree to continue conservative treatment. discussed with son an d pateint son at bedside , they wants to go home today an dthey will follow up wiht their orthopedics d/W Dr. Darrell fairchild , cleared for discharge home today and f/u with PMD nd ortho in 3-5 days RX given
--- NOTE | 2017-01-21 19:50 | CP.PCM.PN ---
Subjective - Date & Time of Evaluation Date of Evaluation: 01/21/17 Time of Evaluation: 09:00 - Subjective Subjective: clinically same Objective - Vital Signs/Intake and Output Vital Signs (last 24 hours): Temp Pulse Resp BP Pulse Ox 98.1 F 66 20 107/67 95 01/21/17 15:40 01/21/17 15:40 01/21/17 15:40 01/21/17 15:40 01/21/17 15:40 Intake and Output: 01/21/17 01/22/17 18:59 06:59 Intake Total 400 Balance 400 - Medications Medications: Current Medications Acetaminophen/Butalbital/Caffeine (Fioricet) 1 tab PO TID PRN PRN Reason: Headache Diphenhydramine HCl (Benadryl) 25 mg PO Q8 PRN PRN Reason: Itching / Pruritus Last Admin: 01/20/17 22:07 Dose: 25 mg Enoxaparin Sodium (Lovenox) 40 mg SC DAILY [facility] Last Admin: 01/21/17 10:20 Dose: 40 mg Levetiracetam (Keppra) 500 mg PO BID [facility] Last Admin: 01/21/17 18:41 Dose: 500 mg Levothyroxine Sodium (Synthroid) 50 mcg PO DAILY@0630 [facility] Last Admin: 01/21/17 05:43 Dose: 50 mcg Morphine Sulfate (Morphine) 2 mg IVP Q4 PRN PRN Reason: Pain, severe (8-10) Last Admin: 01/21/17 10:20 Dose: 2 mg Pantoprazole Sodium (Protonix Ec Tab) 40 mg PO DAILY [facility] Last Admin: 01/21/17 10:20 Dose: 40 mg - Labs Labs: 01/21/17 11:19 01/21/17 11:19 PT 11.3 SECONDS (9.7-12.2) 01/19/17 07:47 INR 1.0 01/19/17 07:47 APTT 29 SECONDS (21-34) 01/19/17 07:47 - Constitutional Appears: Well - Head Exam Head Exam: ATRAUMATIC, NORMAL INSPECTION, NORMOCEPHALIC - Eye Exam Eye Exam: EOMI, Normal appearance, PERRL Pupil Exam: NORMAL ACCOMODATION, PERRL - ENT Exam ENT Exam: Mucous Membranes Moist, Normal Exam - Neck Exam Neck Exam: Full ROM, Normal Inspection. absent: Lymphadenopathy - Respiratory Exam Respiratory Exam: Decreased Breath Sounds - Cardiovascular Exam Cardiovascular Exam: REGULAR RHYTHM, +S1, +S2 - GI/Abdominal Exam GI & Abdominal Exam: Soft, Diminished Bowel Sounds - Rectal Exam Rectal Exam: NORMAL INSPECTION
--- NOTE | 2017-01-22 00:07 | CARD ---
APPROVED REPORT <Conclusion> Very sub-opitmal study. No valvular stenosis or regurgitation noted. LV systolic function: cannot be evaluated. There is a suggestionof reduced LV EF. IV definity is inidcated.
--- NOTE | 2017-01-22 04:15 | CON ---
DATE: REASON FOR CONSULTATION: Preoperative evaluation. HISTORY OF PRESENT ILLNESS: The patient is a 56-year-old [place] female who has a history of seizure disorder for the past two years and recently underwent reduction of left shoulder dislocation at the [facility] [place], was admitted because of altered mental status after she was found in bed by the family shaking and experiencing urinary incontinence. While the patient was on telemetry yesterday, she sustained a fall which she attributed to slipping on slippery floor as she was going from her bed to the bathroom and sustained fracture of the left humeral head. The patient denies any history of chest pain or heart attack or stroke in the past. According to the patient's son, the patient underwent full cardiac workup in the [facility] [place] before she underwent reduction of her left shoulder dislocation. SOCIAL HISTORY: The patient is a nonsmoker, nondrinker. MEDICATIONS: Benadryl 25 mg q. 8 hours, Fioricet one tablet t.i.d., Keppra 500 mg twice a day, Lovenox 40 mg subcutaneous once a day, Synthroid 50 mcg once a day, Protonix 40 mg once a day. REVIEW OF SYSTEMS: No nausea or vomiting, no fever or chills. No chest pain, no palpitation. PHYSICAL EXAMINATION: GENERAL: The patient is a middle-aged female who appears much older than her stated age. VITAL SIGNS: Blood pressure 107/67, heart rate 66, temperature 98.1, respirations 20. HEENT: Normocephalic. CHEST: Clear. HEART: S1, S2 regular. ABDOMEN: Soft. EXTREMITIES: No edema. LABORATORY DATA: Hemoglobin, hematocrit, white count, and platelet count are within normal limits. SMA-7 today within normal limits except for potassium of 3.4. PT, PTT, and INR are within normal limits. EKG revealed sinus rhythm. At the age of 56, anterior wall CO of indeterminate age and poor R wave progression, possible old anterior wall CO. ASSESSMENT: 1. Status post fall and left humerus hip fracture. 2. 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 3. Hypothyroidism. 4. Seizure disorder. RECOMMENDATIONS: Continue current Keppra 500 mg twice a day, Lovenox 40 mg once a day, Synthroid 50 mcg once a day. Obtain an echocardiogram. Lazarus Thomas MD
== END 2017-01-21 17:00 | disposition home or self-care (01) | DRG 889 ==
LOC: C.ER 07:07 → C.9E 10:24 → C.5S 11:49
PROVIDERS: ADMIT Internal Medicine Nephrology; ATTEND Internal Medicine Nephrology
DX: G40.909 Epilepsy, unspecified, not intractable, without status epilepticus (principal); R32 Unspecified urinary incontinence; I11.9 Hypertensive heart disease without heart failure; W01.0XXA Fall on same level from slipping, tripping and stumbling without subsequent striking against object, initial encounter; E03.9 Hypothyroidism, unspecified; I25.2 Old myocardial infarction; S42.292A Other displaced fracture of upper end of left humerus, initial encounter for closed fracture; Y92.230 Patient room in hospital as the place of occurrence of the external cause